=== PATIENT | male | born 1950 ===

== ENCOUNTER 2022-08-27 13:37 | Day surgery (SDC) | payer MEDICARE ==
[~2022-08-27] VITALS: Ht 182.9 cm; Wt 94.8 kg
[~2022-08-27 13:37] MED LIST: ALPHA LIPOIC A200 MG; Acetyl L-Carni500 MG; C-1000 WITH R1000 MG; CORAL CALCIUM1 GM; CYCL10; DIAZ10; Glucophage1000 MG; HYDR1TAB94; L-Lysine500 M1; LECITHIN400 MG; LEVSOD50; Nortriptyline H10 MG; OMEG1CAP30; PIOG45
[2022-08-27] MEDS ORDERED: BETIMOL5 ML BOTHEYES (14:18)
[2022-08-27] MEDS ORDERED: TOUJEO MAX300 UNIT/2 SC (14:20)
[2022-08-27] MEDS ORDERED: LATANOPROST 0.7.5 M3 BOTHEYES (14:21)
--- NOTE | 2022-08-27 14:29 | NUR ---
08/27/22 1429 Kerry Wilson CALL LIGHT WITHIN REACH. TETRACAINE IN RIGHT EYE AT 1419 AND PLEDGETT IN AT 1420
== END 2022-08-27 15:42 | disposition home or self-care (01) ==
LOC: ORSCSDS 13:37
PROVIDERS: Ophthalmology
PROC: 08923ZZ Drainage of Right Anterior Chamber, Percutaneous Approach (ICD-10-PCS; principal; 2022-08-27 15:00)
PROC: 08DJ3ZZ Extraction of Right Lens, Percutaneous Approach (ICD-10-PCS; principal; 2022-08-27 15:00)
DX: E11.36 Type 2 diabetes mellitus with diabetic cataract (principal); H25.11 Age-related nuclear cataract, right eye; H40.1131 Primary open-angle glaucoma, bilateral, mild stage; K21.9 Gastro-esophageal reflux disease without esophagitis; F41.9 Anxiety disorder, unspecified; Z86.16 Personal history of COVID-19; Z87.891 Personal history of nicotine dependence; Z79.84 Long term (current) use of oral hypoglycemic drugs; Z79.4 Long term (current) use of insulin; Z79.899 Other long term (current) drug therapy
CPT/HCPCS: 82947; J2001; J2250; J3010; J3301; J7040; V2632

== ENCOUNTER 2022-09-03 12:56 | Day surgery (SDC) | payer MEDICARE ==
[~2022-09-03] VITALS: Ht 182.9 cm; Wt 95.5 kg
[~2022-09-03 12:56] MED LIST changes: +BETIMOL5 ML BOTHEYES; +LATANOPROST 0.7.5 M3 BOTHEYES; +TOUJEO MAX300 UNIT/2 SC
[2022-09-03] MEDS ORDERED: NEURONTIN300 MG PO (13:44)
--- NOTE | 2022-09-03 13:57 | NUR ---
09/03/22 1357 Yumiko Omalley AT 1342 PLEDGET AT 1343
== END 2022-09-03 15:30 | disposition home or self-care (01) ==
LOC: ORSCSDS 12:56
PROVIDERS: Ophthalmology
PROC: 08DJ3ZZ Extraction of Right Lens, Percutaneous Approach (ICD-10-PCS; principal; 2022-09-03 14:30)
PROC: 08933ZZ Drainage of Left Anterior Chamber, Percutaneous Approach (ICD-10-PCS; principal; 2022-09-03 14:30)
DX: E11.36 Type 2 diabetes mellitus with diabetic cataract (principal); H25.12 Age-related nuclear cataract, left eye; Z96.1 Presence of intraocular lens; H40.1131 Primary open-angle glaucoma, bilateral, mild stage; Z87.891 Personal history of nicotine dependence; Z79.84 Long term (current) use of oral hypoglycemic drugs; Z79.899 Other long term (current) drug therapy
CPT/HCPCS: 82947; J2001; J2250; J2405; J3010; J3300; J7040; V2632